=== PATIENT | female | born 1965 | race Caucasian/White ===

== ENCOUNTER 2018-11-25 14:26 | Emergency (ER) | payer BC ==
[2018-11-25] MEDS ORDERED: Aspirin 81 MG Tab.Chew ONE (14:31)
[2018-11-25] MEDS ORDERED: Metoprolol Tartrate 50 MG Tab PO ONE (14:40)
--- NOTE | 2018-11-25 14:46 | EDM.PDOC ---
ED HPI GENERAL MEDICAL PROBLEM - General Chief Complaint: Chest Pain Stated Complaint: CHEST HEAVINESS,SHORTNESS OF BREATH Time Seen by Provider: 11/25/18 14:30 Source of Information: Reports: Patient, Old Records, RN History Limitations: Reports: No Limitations - History of Present Illness INITIAL COMMENTS - FREE TEXT/NARRATIVE: 53 yo female presents with chest tightness since 0630h this morning that came on while getting dressed. Chest feels more tight with attempting a full breath. No calf pain or new LE edema. Has no CAD hx. Smokes 1/2 ppd x 10 yrs. Is being tx'd for elevated cholesterol. FHx + for CAD. No hx of DM. Has been tx'd in the past for HTN, but has been off meds for this since early fall with good control off meds per patient report. Onset: Today Onset Date: 11/25/18 Onset Time: 06:30 Duration: Hour(s):, Constant Location: Reports: Chest Quality: Reports: Other (heaviness/tightness) Severity: Mild Improves with: Reports: None Worsens with: Reports: None Context: Reports: Other (See HPI) Associated Symptoms: Reports: Chest Pain, Shortness of Breath (mild). Denies: Cough, Diaphoresis, Fever/Chills, Nausea/Vomiting, Syncope, Weakness Treatments [employer]OTHING [employer]PER[employer]OR: Reports: Other (see below) (none) - Related Data Allergies Allergy/AdvReac Type Severity Reaction Status Date / Time No Known Allergies Allergy Verified 11/25/18 14:35 Home Meds: Home Meds Levothyroxine Sodium [Synthroid] 25 mcg PO DAILY 01/15/14 [History] Sertraline [Zoloft] 100 mg PO DAILY 01/15/14 [History] Aspirin [Halfprin] 81 mg PO DAILY 05/01/15 [History] atorvaSTATin Calcium [Atorvastatin Calcium] 20 mg PO DAILY 05/01/15 [History] Ibuprofen 400 mg PO QID PRN 05/12/16 [History] Gabapentin [Neurontin] 600 mg PO BID 11/25/18 [History] Metoprolol Succinate 50 - 100 mg PO DAILY #30 tab.er.24h 11/25/18 [Rx] Past Medical History Cardiovascular History: Reports: High Cholesterol, Hypertension Musculoskeletal History: Reports: Back Pain, Chronic Neurological History: Reports: Neuropathy, Peripheral Endocrine/Metabolic History: Reports: Hyperthyroidism - Past Surgical History HEENT Surgical History: Reports: Tonsillectomy GI Surgical History: Reports: Appendectomy, Cholecystectomy, Hernia, Abdominal Female Surgical History: Reports: Section Musculoskeletal Surgical History: Reports: Hip Replacement ED ROS GENERAL - Review of Systems Review Of Systems: See Below Constitutional: Reports: No Symptoms HEENT: Reports: No Symptoms Respiratory: Reports: Shortness of Breath. Denies: Wheezing, Pleuritic Chest Pain, Cough, Sputum, Hemoptysis Cardiovascular: Reports: Chest Pain (mild tightness). Denies: Dyspnea on Exertion, Edema, Lightheadedness, Orthopnea, Palpitations, PND Endocrine: Reports: No Symptoms GI/Abdominal: Reports: No Symptoms : Reports: No Symptoms Musculoskeletal: Reports: No Symptoms Skin: Reports: No Symptoms Neurological: Reports: No Symptoms Psychiatric: Reports: No Symptoms ED EXAM, GENERAL - Physical Exam Exam: See Below Exam Limited By: No Limitations General Appearance: Alert, WD/WN, No Apparent Distress Eye Exam: Bilateral Eye: Normal Inspection Ears: Normal External Exam, Normal Canal, Hearing Grossly Normal, Normal TMs Ear Exam: Bilateral Ear: Auricle Normal, Canal Normal, TM normal Nose: Normal Inspection, Normal Mucosa, No Blood Throat/Mouth: Normal Inspection, Normal Lips, Normal Oropharynx, Normal Voice, No Airway Compromise Head: Atraumatic, Normocephalic Neck: Normal Inspection Respiratory/Chest: No Respiratory Distress, Lungs Clear, Normal Breath Sounds, No Accessory Muscle Use, Chest Non-Tender Cardiovascular: Regular Rate, Rhythm, No Edema GI/Abdominal: Normal Bowel Sounds, Soft, Non-Tender, No Distention Back Exam: Normal Inspection Extremities: Normal Inspection, Normal Range of Motion, Non-Tender, No Pedal Edema Neurological: Alert, Oriented, CN II-XII Intact, Normal Cognition, No Motor/ Sensory Deficits Psychiatric: Normal Affect, Normal Mood Skin Exam: Warm, Dry, Intact, Normal Color, No Rash EKG INTERPRETATION EKG Date: 11/25/18 Time: 14:45 Rhythm: NSR Rate (Beats/Min): 90 [place]: Normal P-Wave: Present QRS: Normal ST-T: Normal QT: Normal Comparison: NA - No Prior EKG Course - Vital Signs Last Recorded V/S: Last Vital Signs Temp 36.8 C 11/25/18 14:49 Pulse 77 11/25/18 17:25 Resp 10 L 11/25/18 17:25 BP 122/68 11/25/18 17:25 Pulse Ox 96 11/25/18 16:42 - Orders/Labs/Meds Orders: Active Orders 24 hr Category Date Time Status Cardiac Monitoring [RC] .As Directed Care 11/25/18 14:34 Active EKG Documentation Completion [RC] ASDIRECTED Care 11/25/18 14:34 Active EKG 12 Lead [EK] Routine Ther 11/25/18 14:34 Ordered Labs: Laboratory Tests 11/25/18 11/25/18 11/25/18 Range/Units 14:59 14:59 17:05 WBC 13.6 H (4.5-11.0) K/uL RBC 4.27 (3.30-5.50) M/uL Hgb 12.8 (12.0-15.0) g/dL Hct 39.2 (36.0-48.0) % MCV 92 (80-98) fL MCH 30 (27-31) pg MCHC 33 (32-36) % Plt Count 404 H (150-400) K/uL Sodium 140 (140-148) mmol/L Potassium 3.6 (3.6-5.2) mmol/L Chloride 101 (100-108) mmol/L Carbon Dioxide 29 (21-32) mmol/L Anion Gap 10.4 (5.0-14.0) mmol/L BUN 9 (7-18) mg/dL Creatinine 0.7 (0.6-1.0) mg/dL Est Cr Clr Drug Dosing TNP Estimated GFR (MDRD) > 60 (>60) Glucose 113 H (74-106) mg/dL Calcium 9.0 (8.5-10.1) mg/dL Troponin I < 0.017 < 0.017 (0.000-0.056) ng/mL Meds: Medications Discontinued Medications Generic Name Dose Route Start Last Admin Trade Name Freq PRN Reason Stop Dose Admin Aspirin Confirm 11/25/18 14:31 11/25/18 14:26 Aspirin Administered 11/25/18 14:32 324 mg Dose Administration 324 mg .ROUTE .STK-MED ONE Lisinopril 20 mg 11/25/18 15:30 11/25/18 15:36 Prinivil PO 11/25/18 15:31 20 mg ONETIME ONE Administration Metoprolol Tartrate 50 mg 11/25/18 14:40 11/25/18 14:52 Lopressor PO 11/25/18 14:41 50 mg ONETIME ONE Administration Departure - Departure Time of Disposition: 17:51 Disposition: Home, Self-Care 01 Condition: Good Clinical Impression: Nonspecific chest pain, HTN, goal below 130/80 Prescriptions: Metoprolol Succinate 50 - 100 mg PO DAILY #30 tab.er.24h Instructions: Nonspecific Chest Pain, [id number], Hypertension Referrals: PCP,None [Primary Care Provider] - Forms: ED Department Discharge Additional Instructions: Restart your daily lisinopril 20 mg tomorrow morning. Keep close track of your BP and if its remains elevated add metoprolol succinate daily to your regimen. Return if worse. Try to get in to see your doctor before you leave [facility] if possible. - My Orders Last 24 Hours: My Active Orders 11/25/18 14:34 Cardiac Monitoring [RC] .As Directed EKG Documentation Completion [RC] ASDIRECTED EKG 12 Lead [EK] Routine - Assessment/Plan Last 24 Hours: My Active Orders 11/25/18 14:34 Cardiac Monitoring [RC] .As Directed EKG Documentation Completion [RC] ASDIRECTED EKG 12 Lead [EK] Routine
[2018-11-25] MEDS ORDERED: Lisinopril 10 MG Tab PO ONE (15:30)
== END 2018-11-25 18:03 | disposition home or self-care (01) ==
LOC: JP.ED 14:26
DX: I10 Essential (primary) hypertension (principal); R07.89 Other chest pain; Z79.899 Other long term (current) drug therapy
CPT/HCPCS: 36415; 80048; 84484; 85027; 93005; 99285; A9270